=== PATIENT | female | born 1930 | race Caucasian/White ===

== ENCOUNTER 2016-07-06 06:14 | Inpatient (IN) | payer OTHER ==
[2016-06-14 12:47] VITALS: BMI 28.0
--- NOTE | 2016-06-14 13:27 | PAT Medication Instructions ---
Service Date Jun 14, 2016. Current Home Medication List Acetaminophen (Tylenol), 325 MG PO PRN Atenolol (Tenormin), 25 MG PO QAM Calcium Carbonate-Vitamin D (Calcium + D), 1 TAB PO NOON Cholecalciferol (Vitamin D3), 1 TAB PO QAM Ibuprofen Tab (Advil), 200 MG PO Q4H PRN for RN Loperamide Hcl (Imodium), 2 MG PO PRN Ocuvite Preservision (Ocuvite Preservision), 1 TAB PO NOON Simvastatin (Zocor), 5 MG PO QPM Triamterene/Hctz (Dyazide 37.5MG/25MG), 1 TAB PO QAM Medication Instructions For Your Scheduled Surgery Ibuprofen Tab (Advil), 200 MG PO Q4H PRN for RN (p[er surgeon for instructions) - Hold the following medications the morning of surgery: Triamterene/Hctz (Dyazide 37.5MG/25MG), 1 TAB PO QAM Loperamide Hcl (Imodium), 2 MG PO PRN Cholecalciferol (Vitamin D3), 1 TAB PO QAM - Take the following medications the morning of surgery with a sip of water: Atenolol (Tenormin), 25 MG PO QAM Acetaminophen (Tylenol), 325 MG PO PRN - Take the following medications as scheduled the night before surgery: Simvastatin (Zocor), 5 MG PO QPM Ocuvite Preservision (Ocuvite Preservision), 1 TAB PO NOON Loperamide Hcl (Imodium), 2 MG PO PRN Calcium Carbonate-Vitamin D (Calcium + D), 1 TAB PO NOON Acetaminophen (Tylenol), 325 MG PO PRN If you have any questions please call us at [phone] (Sissy Taylor PA-C) or [phone] or [phone]
--- NOTE | 2016-07-03 09:16 | HISTORY & PHYSICAL EXAMINATION ---
DATE OF ADMISSION: 07/06/2016 CHIEF COMPLAINT: Painful left total knee replacement. HISTORY OF PRESENT ILLNESS: Ms. Dumont is an 85-year-old female who had bilateral knee replacement in 1999. The patient has been complaining of pain in her left knee. In December, she had a popping sensation. She is having pain and clicking since that time. The patient was previously scheduled for revision surgery, but was canceled due to illness. She is now cleared for surgery and is ready to proceed with left knee revision. PAST MEDICAL HISTORY: Compression fracture. She denies heart disease, diabetes or DVT. PAST SURGICAL HISTORY: Appendectomy, bilateral TKA and history of skin cancer. SOCIAL HISTORY: She denies alcohol or tobacco use. She lives in a single story home. She lives alone and is retired. FAMILY HISTORY: Negative for DVT. MEDICATIONS: Simvastatin 5 mg daily, atenolol 25 mg daily, Vitamin D3 1000 units daily, triamterene 37.5 daily, PreserVision tablets, tramadol p.r.n. ALLERGIES: IODINE. REVIEW OF SYSTEMS: See HPI. Ten other systems reviewed, all negative. PHYSICAL EXAMINATION: VITAL SIGNS: Height 5 foot 0 inches, weight 144 pounds, BMI 28. GENERAL: This is a well-developed, well-nourished female who is alert and oriented x3. Mood and affect are appropriate. HEENT: Normocephalic, atraumatic. Mucous membranes are moist and intact. NECK: Supple without lymphadenopathy. HEART: Regular rate and rhythm without murmurs, rubs or gallops. LUNGS: Clear to auscultation without wheezes or rhonchi. ABDOMEN: Soft and nontender. Bowel sounds are equal and active. EXTREMITIES: No ecchymosis, redness or warmth. She has a midline incision that is well healed. Thigh and calf are soft and nontender. She has minimal effusion. Range of motion is from 0-115 degrees. 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 X-RAY EXAMINATION: AP and lateral views show a posterior stabilized knee in good position. Right knee shows severe poly wear; however, that knee is asymptomatic. 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 PLAN: The patient will be admitted for a left knee revision. We will plan on aspirin for DVT prophylaxis. The patient will have [facility] for home physical therapy. Her PCP is Dr. Callejas at [facility].
[~2016-07-06] VITALS: Ht 152.4 cm; Wt 65.5 kg
[2016-07-06] VITALS (8 sets, daily range): BP systolic 112–157; BP diastolic 62–74; PULSE 59–75; TEMP 36.3–36.6; O2SAT 96–99; Ht 152.4 cm; Wt 65.5 kg
[~2016-07-06 06:14] MED LIST: ACET-1311 PO; ACETAMINOPHEN 500 MG TAB PO SCH; ATEN-173 PO; CALC600T9 PO; CEFAZOLIN 2000 MG/60 ML D5W 60 ML IV SCH; CHOL1000 PO; CeleBREX 200 MG CAP PO SCH; DEXAMETHASONE 4 MG TAB PO SCH; FAMOTIDINE 20 MG TAB PO SCH; GABAPENTIN 300 MG CAP PO SCH; IBUP-103 PO; IMD/2 PO; LACTATED RINGER'S 1000ML 1,000 ML IV SCH; LACTATED RINGER'S 500 ML IV SCH; METOCLOPRAMIDE HCL 10 MG TAB PO SCH; MULT-190 PO; OXYCODONE HCL 10 MG TABCR (OXYCONTIN) PO SCH; POLYMYXIN B SULFATE 100,000 UNITS in NSS 100ML IR SCH; ROPIVACAINE 5MG/ML 30 ML 150 MG, BUPIVACAINE/EPINEPHR 0.5% MPF 30 ML, KETOROLAC TROMETH... INFIL SCH; SIMV5TAB2 PO; TRIA37.5 PO; VANCOMYCIN 1GM/270ML NSS 270 ML IV SCH; VANCOMYCIN INJ 400 MG in NSS 100ML IR SCH
[2016-07-06] MEDS: TRANEXAMIC ACID INJ 1,000 MG in SODIUM CHLORIDE 0.9% 100ML 100 ML IV SCH ×2 (06:30→09:43)
[2016-07-06] MEDS ORDERED: ROPIVACAINE 0.5% 5 MG/ML 30 ML VIAL ONE (06:46)
[2016-07-06] MEDS ORDERED: BUPIVACAINE 0.5 % 5 MG/1 ML PF 10ML VIAL ONE (06:46)
[2016-07-06] MEDS ORDERED: PHENYLEPHRINE 100MCG/ML 5ML SYR IV PRN (08:45)
[2016-07-06] MEDS ORDERED: ONDANSETRON INJ 2 MG/ML 2 ML VIAL IV PRN ×2 (08:45→12:30)
[2016-07-06] MEDS ORDERED: HYDROmorphone INJ 2 MG/ML SYR/VIAL IV PRN (08:45)
[2016-07-06] MEDS ORDERED: EpHEDrine SULFATE INJ 50 MG/ML AMP IV PRN (08:45)
[2016-07-06] MEDS ORDERED: ATROPINE SULFATE 0.1 MG/ML 5ML SYR IV PRN (08:45)
[2016-07-06] MEDS ORDERED: FENTANYL CITRATE INJ 50 MCG/1 ML 2 ML VIAL ONE (08:50)
[2016-07-06] MEDS ORDERED: MIDAZOLAM HCL 1 MG/ML 2ML VIAL ONE ×2 (08:50)
--- NOTE | 2016-07-06 09:58 | History & Physical Bridge Note ---
H&P Re-Evaluation Bridge Note: I have examined the patient, reviewed the History & Physical and in the interval since the performance of the History & Physical I have noted the following changes of clinical significance: No changes noted
[2016-07-06] MEDS ORDERED: POVIDONE-IODINE OP SOLN 30 ML BTL ONE (09:59)
[2016-07-06] MEDS ORDERED: ORTHO JOINT ANESTHETIC ONE (09:59)
[2016-07-06] MEDS ORDERED: BACITRACIN 50000 UNIT VIAL ONE (09:59)
[2016-07-06] MEDS ORDERED: PROPOFOL IV EMULSION 10 MG/ML 20 ML VIAL IV ONE (10:35)
[2016-07-06] MEDS ORDERED: LIDOCAINE HCL 2% 2 ML VIAL (20MG/ML) ONE (10:35)
[2016-07-06] MEDS ORDERED: EpHEDrine SULFATE 50MG/5ML SYR ONE (11:04)
[2016-07-06] MEDS: CALCIUM 600MG + VIT D 400 IU TAB PO SCH (12:00)
--- NOTE | 2016-07-06 12:25 | [facility] Post Operative Brief Note ---
Immediate Operative Summary Operative Date Jul 06, 2016. Pre-Operative Diagnosis Painful left total knee replacement Post-Operative Diagnosis Painful left total knee replacement wpoly failure Procedure(s) Performed left total knee revision Surgeon Dr. Akin Boss Furniture Builder Surgeon(s) none Estimated Blood Loss 5mL Findings poly failed delaminated Specimens Microbiology: left knee synovial fluid; gram stain, routine culture & sensitivity, anaerobic, aerobic; left room at 1042. Permanent A: left knee removed hardware B: left knee bone and tissue Complication(s) None Disposition Recovery Room / PACU
[2016-07-06] MEDS ORDERED: BISACODYL 10 MG SUPP PR PRN (12:30)
[2016-07-06] MEDS ORDERED: SOD PHOSPHATE/SOD BIPHOSPHATE ENEMA 132 ML BTL PR PRN (12:30)
[2016-07-06] MEDS ORDERED: METOCLOPRAMIDE HCL INJ 5 MG/ML 2 ML VIAL IV PRN (12:30)
[2016-07-06] MEDS ORDERED: KETOROLAC TROMETHAMINE 15 MG/ML VIAL IV. PRN (12:30)
[2016-07-06] MEDS ORDERED: ALUMINUM/MAGNESIUM/SIMETH (MAALOX MAX) 30 ML UDC PO PRN (12:30)
[2016-07-06] MEDS ORDERED: TRAMADOL HCL 50 MG TAB PO PRN (12:30)
[2016-07-06] MEDS ORDERED: ZOLPIDEM TARTRATE 5 MG TAB PO PRN (12:30)
[2016-07-06] MEDS ORDERED: MAGNESIUM HYDROXIDE SUSP 30 ML UDC PO PRN (12:30)
[2016-07-06] MEDS ORDERED: MoRPHine SULFATE 2 MG/ML CARP IV PRN (12:30)
[2016-07-06] MEDS ORDERED: DiphenhydrAMINE HCL 50 MG/ML VIAL IV PRN (12:30)
[2016-07-06] MEDS ORDERED: OXYCODONE HCL IR 5 MG TAB (IMMEDIATE RELEASE) PO PRN (12:30)
--- NOTE | 2016-07-06 12:54 | DIAGNOSTIC IMAGING REPORT ---
LEFT KNEE 2 VIEWS History: Left total knee arthroplasty. Degenerative arthritis. Postop. FINDINGS: The patient is status post a left total knee arthroplasty. The hardware is intact. No fracture or dislocation. Skin kiran and surgical drains are in place. IMPRESSION: Left total knee arthroplasty. No evidence for hardware complication.. Electronically signed by: Jam Castillo M.D. 07/06/2016 12:52 PM Dictated Date/Time: 07/06/2016 12:51 PM
--- NOTE | 2016-07-06 12:57 | Anesthesiology Progress Note ---
Anesthesia Post Op Note Date & Time Jul 06, 2016 at 12:56 Vital Signs Pain Intensity: 0 Vital Signs Past 12 Hours Date Time Temp Pulse Resp B/P Pulse Ox O2 Delivery O2 Flow Rate FiO2 07/06/16 12:50 76 12 139/65 96 Nasal Cannula 2 07/06/16 12:40 76 13 134/68 99 Nasal Cannula 4 07/06/16 12:30 80 16 133/57 99 Nasal Cannula 4 07/06/16 12:22 36.0 79 14 131/68 97 Nasal Cannula 4 07/06/16 06:52 36.6 59 20 157/74 98 Room Air Notes Mental Status: alert / awake / arousable, participated in evaluation Pt Amnestic to Procedure: Yes Nausea / Vomiting: adequately controlled Pain: adequately controlled Airway Patency, RR, SpO2: stable & adequate BP & HR: stable & adequate Hydration State: stable & adequate Anesthetic Complications: no major complications apparent
--- NOTE | 2016-07-06 13:17 | OPERATIVE REPORT ---
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 POSTOPERATIVE DIAGNOSIS: Same. PROCEDURE: Revision left total knee replacement. SURGEON: Linus Boss MD TRACTOR TECHNICIAN: None. ANESTHESIA: Spinal. TOURNIQUET TIME: 98 minutes at 275 mmHg. DRAINS: Hemovac x2. CULTURES: Aerobic and anaerobic. COMPLICATIONS: None. COMPONENTS USED: [employer] revision knee system: Femur size 3 with bilateral 5-mm distal augments, 6-mm offset, and 16 x 120 stem. Tibia size 2, 6-mm offset, and 14 x 120 stem. Tibial insert 25 constrained. INDICATION: This patient is an 85-year-old woman with a history of knee replacements done in 19-20 years ago. She had the Encore knees that had been revised once for a polyethylene failure. She presented with pain and instability and evidence of polyethylene failure. It was not severe osteolysis. DESCRIPTION OF PROCEDURE: Following satisfactory spinal, the patient was supine. A tourniquet was placed. The lower extremity was prepared with ChloraPrep and draped sterilely. Following a surgical time-out, a midline incision was made with a median parapatellar arthrotomy. A moderate amount of benign synovial fluid was encountered. Cultures were taken and reported as no organisms. Synovectomy was performed. It was obvious that the tibial polyethylene had failed and was delaminated. The tibial poly was removed. Neither component was overly loose, but given the history of the knee, it was decided to revise the femoral and tibial components. They were removed with minimal to no bone loss using an artist chisel. The IM reaming and alignment system was used to prepare first the tibia and then the femur. The patella showed a little bit of delamination, but was intact and it was decided, given her age and the softness of her bone, not to revise the patella. A trial reduction with the above-mentioned components showed good tensioning stability on the collateral ligaments, stable range of motion, and the patella tracked well. The trial components were removed. The capsule was prepared with the orthopedic cocktail and after irrigation, the components were cemented using Simplex G cement. A Betadine soak was performed. When the cement had hardened, the Betadine was irrigated. Two drains were placed. The arthrotomy was closed with #1 Vicryl interrupted. The subcutaneous tissues were closed with 2-0 Vicryl and the skin was closed with surgical kiran. A dry dressing was applied. The tourniquet was deflated. The patient was returned to her bed in stable condition. I attest to the content of the Intraoperative Record and any orders documented therein. Any exceptions are noted below. MTDD
[2016-07-06] MEDS: D5W AND 1/2NSS + 20MEQ KCL 1,000 ML IV SCH ×2 (15:28→23:21)
[2016-07-06] MEDS: ACETAMINOPHEN 500 MG TAB PO SCH ×2 (15:29→20:49)
[2016-07-06] MEDS: CEFAZOLIN IV 1,000 MG in DEXTROSE 5% 50ML 50 ML IV SCH (18:20)
[2016-07-06] MEDS: ASPIRIN 81 MG ECTAB PO SCH (20:48)
[2016-07-06] MEDS: OXYCODONE HCL 10 MG TABCR (OXYCONTIN) PO SCH (20:50)
[2016-07-06] MEDS ORDERED: SIMVASTATIN 5 MG TAB PO SCH (21:00)
[2016-07-06] MEDS ORDERED: SENNA 8.6 MG TAB PO SCH (21:00)
[2016-07-07] MEDS: CEFAZOLIN IV 1,000 MG in DEXTROSE 5% 50ML 50 ML IV SCH (02:09)
[2016-07-07 03:15] VITALS: BP 108/58; PULSE 68; TEMP 36.3; O2SAT 93
[2016-07-07 05:47] LABS: HEMATOCRIT 32.4 % (37-47); MEAN CELL VOLUME 89.3 fL (80-100); MEAN CORPUSCULAR HEMOGLOBIN 29.8 pg (25-34); MEAN CORPUSCULAR HGB CONC 33.3 g/dl (32-36); MEAN PLATELET VOLUME 8.8 fL (7.4-10.4); PLATELET COUNT 201 K/uL (130-400); RED BLOOD COUNT 3.63 M/uL (4.2-5.4); WHITE BLOOD COUNT 14.87 K/uL (4.8-10.8)
[2016-07-07] MEDS: ACETAMINOPHEN 500 MG TAB PO SCH (05:52)
[2016-07-07 06:02] LABS: BUN/CREATININE RATIO 19.7 (10-20); CALCIUM 8.2 mg/dl (8.5-10.1); CREATININE 1.1 mg/dl (0.60-1.20); POTASSIUM 4.5 mmol/L (3.5-5.1)
[2016-07-07 07:01] VITALS: BP 106/53; PULSE 62; TEMP 36.4; O2SAT 98
--- NOTE | 2016-07-07 08:46 | Orthopedic Progress Note ---
Orthopedic Progress Note Date of Service Jul 07, 2016. Subjective Post OP Day: 1 Reports: feeling well, pain controlled w PO medications, Denies: SOB, complaints , light headedness, nausea / vomiting Objective calves soft nontender, N/V intact, dressing C/D/I, A&O x3, toes mobile, hemovac drainage ( LAST SHIFT ) Date Time Temp Pulse Resp B/P Pulse Ox O2 Delivery O2 Flow Rate FiO2 07/07/16 08:27 Room Air 07/07/16 07:01 36.4 62 16 106/53 98 2.0 07/07/16 03:15 36.3 68 16 108/58 93 Nasal Cannula 2.0 07/06/16 23:25 Nasal Cannula 2.0 07/06/16 22:55 36.3 75 16 112/62 98 Nasal Cannula 2.0 07/06/16 19:12 36.3 73 18 145/66 99 Nasal Cannula 2.0 07/06/16 16:28 36.3 72 16 142/74 96 Nasal Cannula 2.0 07/06/16 15:21 36.3 64 16 126/74 98 Nasal Cannula 2.0 07/06/16 15:15 Nasal Cannula 2.0 07/06/16 14:48 36.3 67 19 133/72 98 Nasal Cannula 2.0 07/06/16 14:16 36.3 73 15 146/73 97 Nasal Cannula 2.0 07/06/16 13:20 96 Nasal Cannula 2.0 07/06/16 13:20 Room Air 07/06/16 13:00 36.0 80 12 135/62 96 Nasal Cannula 2 07/06/16 12:50 76 12 139/65 96 Nasal Cannula 2 07/06/16 12:40 76 13 134/68 99 Nasal Cannula 4 07/06/16 12:30 80 16 133/57 99 Nasal Cannula 4 07/06/16 12:22 36.0 79 14 131/68 97 Nasal Cannula 4 Laboratory Results 24 Hours: Test 07/07/16 05:35 Hematocrit 32.4 % Hemoglobin 10.8 g/dL Assessment & Plan Assessment: POD 1 REVISION TKA Plan: HOME TODAY W [facility] Inhouse Planning Pain Management: Celebrex, PO Tylenol, Oxy IR DVT Prophylaxis: TEDs, SCDs Discharge Planning Discharge Planning: home with home health Pain Management: Celebrex, PO Tylenol, Oxy IR DVT Prophylaxis: TEDs, ASA
[2016-07-07] MEDS ORDERED: PANTOprazole SOD 40 MG TAB PO SCH (09:00)
[2016-07-07] MEDS ORDERED: MULTIVITAMIN TAB PO SCH (09:00)
[2016-07-07] MEDS: OXYCODONE HCL 10 MG TABCR (OXYCONTIN) PO SCH (09:00)
[2016-07-07] MEDS ORDERED: TRIAMTERENE/HCTZ 37.5/25MG CAP PO SCH (09:00)
[2016-07-07] MEDS ORDERED: CHOLECALCIFEROL 1000 INTER.UNIT TAB PO SCH (09:00)
[2016-07-07] MEDS: ASPIRIN 81 MG ECTAB PO SCH (09:19)
[2016-07-07] MEDS ORDERED: ASPEC81 PO (09:32)
[2016-07-07] MEDS ORDERED: RXC5 PO (09:32)
[2016-07-07] MEDS ORDERED: ACET-1138 PO (09:32)
--- NOTE | 2016-07-07 09:33 | Discharge Instructions ---
Discharge Instructions Date of Service Jul 07, 2016. Admission Reason for Admission: Left Knee Complication W/Internal Joint Prosthesis Discharge Discharge Diagnosis / Problem: left TKA revision Discharge Goals Goal(s): Decrease discomfort, Improve function, Increase independence, Therapeutic intervention Activity Recommendations Activity Limitations: per Instructions/Follow-up section . Instructions / Follow-Up Instructions / Follow-Up ACTIVITY RECOMMENDATIONS: SELF CARE INSTRUCTIONS AFTER TOTAL KNEE REPLACEMENT A. You may need to continue a physical therapy program after discharge from the hospital. There are several options available to you. Your doctor will assist you in selecting the best one for you. 1. An out-patient facility 2 to 3 times a week for therapy or home therapy. 2. Continue working on all exercises taught to you in the hospital. Your goals should be to increase bending of your knee to 90 degrees and beyond and to fully straighten your knee. B. You may progress at your own pace from walking with a walker or crutches to a cane; then to no assistive devices. C. Make walking a part of your daily routine. Be up as much as comfortable with rest periods throughout the day. Rest with leg elevation is very important. Use the ice wrap frequently for the first 3-4 weeks. D. There are no restrictions on activities. You may ride in a car, shop, participate in garden consultant and all social activities. E. Wear the long elastic stockings (ROMULO hose) 20 hours a day for 2 weeks after surgery. They can be removed several times a day for laundering and for a bath. F. You may shower, no tub baths until cleared by your doctor. SPECIAL CARE INSTRUCTIONS: VERY IMPORTANT TO READ AND REVIEW A. There are a few signs you need to watch for after you are home. Call [facility] if you notice any of the followin. Increased severe knee pain. Some pain is expected especially when you exercise. 2. Increased swelling in your leg or knee; pain or swelling of the calf muscle in either lower leg. 3. Any fluid drainage from the incision. 4. Shortness of breath or chest pain. B. Please call [facility] at if you have any concerns or questions about your operation or recovery. The doctor or his nurse will return your call promptly. C. You must take antibiotics before dental work, bladder, bowel or other surgery. Your doctor will provide you with a permanent care to carry describing this precaution. IMPORTANT: * REMEMBER TO TAKE ASPIRIN, 81 MG, TWICE DAILY FOR 4 WEEKS UNLESS OTHERWISE DIRECTED. THIS IS YOUR BLOOD THINNER. * HIGH RISK PATIENTS MAY BE PRESCRIBED A STRONGER BLOOD THINNER. THIS WILL BE PROVIDED AT DISCHARGE. * CALL IF INCREASED PAIN, REDNESS, DRAINAGE OR FEVER GREATER THAT 101. * WEAR ROMULO HOSE 20 HOURS PER DAY FOR 2 WEEKS. * YOU MAY HAVE A LARGE BAND-AID LIKE DRESSING (SILVERON). THIS WILL REMAIN ON YOUR INCISION FOR 7 DAYS, THEN CAN BE REMOVED. IF INCISION IS LEAKING THROUGH DRESSING, CALL THE OFFICE . FOLLOW UP VISIT: If appointment is not already scheduled: Please call [facility] to make a follow-up appointment for 2 weeks after your surgery at . Current Hospital Diet Patient's current hospital diet: Regular Diet Discharge Diet Recommended Diet: Regular Diet Procedures Procedures Performed: left total knee revision Pending Studies Studies pending at discharge: no Medical Emergencies . Who to Call and When: Medical Emergencies: If at any time you feel your situation is an emergency, please call [phone] immediately. . Non-Emergent Contact Non-Emergency issues call your: Primary Care Provider . "Provider Documentation" section prepared by Veronika Merlos. VTE Core Measure Inpt VTE Proph given/why not?: Other Anticoagulation (ASA), T.E.D. Stockings, SCD's
--- NOTE | 2016-07-07 09:35 | Discharge Instructions ---
Discharge Instructions Date of Service Jul 07, 2016. Admission Reason for Admission: Left Knee Complication W/Internal Joint Prosthesis Discharge Discharge Diagnosis / Problem: left tka Revision Discharge Goals Goal(s): Decrease discomfort, Improve function, Increase independence, Therapeutic intervention Activity Recommendations Activity Limitations: per Instructions/Follow-up section . Instructions / Follow-Up Instructions / Follow-Up ACTIVITY RECOMMENDATIONS: SELF CARE INSTRUCTIONS AFTER TOTAL KNEE REPLACEMENT A. You may need to continue a physical therapy program after discharge from the hospital. There are several options available to you. Your doctor will assist you in selecting the best one for you. 1. An out-patient facility 2 to 3 times a week for therapy or home therapy. 2. Continue working on all exercises taught to you in the hospital. Your goals should be to increase bending of your knee to 90 degrees and beyond and to fully straighten your knee. B. You may progress at your own pace from walking with a walker or crutches to a cane; then to no assistive devices. C. Make walking a part of your daily routine. Be up as much as comfortable with rest periods throughout the day. Rest with leg elevation is very important. Use the ice wrap frequently for the first 3-4 weeks. D. There are no restrictions on activities. You may ride in a car, shop, participate in macerator operator and all social activities. E. Wear the long elastic stockings (ROMULO hose) 20 hours a day for 2 weeks after surgery. They can be removed several times a day for laundering and for a bath. F. You may shower, no tub baths until cleared by your doctor. SPECIAL CARE INSTRUCTIONS: VERY IMPORTANT TO READ AND REVIEW A. There are a few signs you need to watch for after you are home. Call [facility] if you notice any of the followin. Increased severe knee pain. Some pain is expected especially when you exercise. 2. Increased swelling in your leg or knee; pain or swelling of the calf muscle in either lower leg. 3. Any fluid drainage from the incision. 4. Shortness of breath or chest pain. B. Please call [facility] at if you have any concerns or questions about your operation or recovery. The doctor or his nurse will return your call promptly. C. You must take antibiotics before dental work, bladder, bowel or other surgery. Your doctor will provide you with a permanent care to carry describing this precaution. IMPORTANT: * REMEMBER TO TAKE ASPIRIN, 81 MG, TWICE DAILY FOR 4 WEEKS UNLESS OTHERWISE DIRECTED. THIS IS YOUR BLOOD THINNER. * HIGH RISK PATIENTS MAY BE PRESCRIBED A STRONGER BLOOD THINNER. THIS WILL BE PROVIDED AT DISCHARGE. * CALL IF INCREASED PAIN, REDNESS, DRAINAGE OR FEVER GREATER THAT 101. * WEAR ROMULO HOSE 20 HOURS PER DAY FOR 2 WEEKS. * YOU MAY HAVE A LARGE BAND-AID LIKE DRESSING (SILVERON). THIS WILL REMAIN ON YOUR INCISION FOR 7 DAYS, THEN CAN BE REMOVED. IF INCISION IS LEAKING THROUGH DRESSING, CALL THE OFFICE . FOLLOW UP VISIT: If appointment is not already scheduled: Please call [facility] to make a follow-up appointment for 2 weeks after your surgery at . Current Hospital Diet Patient's current hospital diet: Regular Diet Discharge Diet Recommended Diet: Regular Diet Procedures Procedures Performed: left total knee revision Pending Studies Studies pending at discharge: no Medical Emergencies . Who to Call and When: Medical Emergencies: If at any time you feel your situation is an emergency, please call [phone] immediately. . Non-Emergent Contact Non-Emergency issues call your: Primary Care Provider . "Provider Documentation" section prepared by Veronika Merlos. VTE Core Measure Inpt VTE Proph given/why not?: Other Anticoagulation (JAS), Niraj Levine, SCD's [place] Drug Monitoring Program Search Results: patient reviewed within database, no issues identified
[2016-07-07] MEDS: D5W AND 1/2NSS + 20MEQ KCL 1,000 ML IV SCH (09:36)
[2016-07-07 11:07] VITALS: BP 106/53; PULSE 62; TEMP 36.4; O2SAT 98
[2016-07-07] MEDS: CALCIUM 600MG + VIT D 400 IU TAB PO SCH (12:00)
[2016-07-07] MEDS ORDERED: CEROVITE ADV FORMULA TAB PO SCH (12:30)
[2016-07-08] MEDS ORDERED: CeleBREX 200 MG CAP PO SCH (08:00)
--- NOTE | 2016-07-23 15:52 | DISCHARGE SUMMARY ---
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 SECONDARY DIAGNOSES: History of compression fractures. CONSULTS: None. COMPLICATIONS: None. PROCEDURE: Left total knee revision by Dr. Taco Boss on 07/06/2016. BRIEF HISTORY: As dictated in the history and physical. HOSPITAL SUMMARY: The patient was admitted on the above date and had the above-noted surgery performed which the patient tolerated well. On the first postoperative day, patient was feeling well and pain was controlled and they had no complaints. Calves were soft, nontender, neurovascularly intact. Dressings clean, dry and intact. Toes were mobile. Vital signs were stable and they were afebrile and hemoglobin was 10.8. She was started on physical therapy protocol and continued on DVT prophylaxis and pain management. They were progressing well on physical therapy and was remaining stable and was felt that she could be discharged to home with home health services with [facility] home health. For further review, please see chart. LABORATORY AND X-RAY DATA: As per chart. DISCHARGE INSTRUCTIONS: The patient was discharged to home in satisfactory condition on 07/07/2016. DIET: Regular. ACTIVITY: Follow TK instruction sheets and special care instructions as noted. Follow up with Dr. Linus Boss in 2 weeks. The patient to call for appointment if one has not been made for you. DISCHARGE MEDICATIONS: Acetaminophen 1000 mg p.o. q. 8 hours for 30 days, aspirin 81 mg p.o. b.i.d., oxycodone 5-10 mg p.o. q. 4 hours p.r.n., resume taking atenolol 25 mg p.o. q.a.m., calcium plus D 1 tab p.o. at noon, vitamin D3 1000 units 1 tab p.o. q.a.m., Imodium 2 mg p.o. p.r.n., Ocuvite 1 tab p.o. at noon, simvastatin 5 mg p.o. q.p.m. and Dyazide 37.5/25 one tab p.o. q.a.m. Stop taking ibuprofen and your 325 mg acetaminophen dose.
== END 2016-07-07 13:00 | disposition home health service (06) | DRG 468 ==
LOC: ENRESERVTM → ENRESERVDT → C.ACU 06:14 → C.3E 08:30 → EDBEDREQ 12:55
PROVIDERS: ADMIT Orthopaedic Surgery; ATTEND Orthopaedic Surgery
PROC: 0SPD0JZ Removal of Synthetic Substitute from Left Knee Joint, Open Approach (ICD-10-PCS; principal; 2016-07-06 09:45)
PROC: 0SRU0J9 Replacement of Left Knee Joint, Femoral Surface with Synthetic Substitute, Cemented, Open Approach (ICD-10-PCS; principal; 2016-07-06 09:45)
PROC: 0SRW0J9 Replacement of Left Knee Joint, Tibial Surface with Synthetic Substitute, Cemented, Open Approach (ICD-10-PCS; principal; 2016-07-06 09:45)
DX: T84.093A Other mechanical complication of internal left knee prosthesis, initial encounter (principal); Z96.653 Presence of artificial knee joint, bilateral; Y79.2 Prosthetic and other implants, materials and accessory orthopedic devices associated with adverse incidents; Y92.009 Unspecified place in unspecified non-institutional (private) residence as the place of occurrence of the external cause